=== PATIENT | female | born 1985 | race Caucasian/White ===

== ENCOUNTER 2020-03-22 01:42 | Emergency (ER) | payer OTHER, SELFPAY ==
--- NOTE | ~2020-03-22 | XR_ITS ---
XR elbow LT 2V DATE: 03/22/2020 02:51 INDICATION: Left elbow pain TECHNIQUE: AP and lateral views COMPARISON: None FINDINGS: No fracture or dislocation or joint effusion. No periosteal reaction or bone destruction. IMPRESSION: Negative Reviewed, dictated and finalized at location A. IMPRESSION: Negative
[2020-03-22 01:46] VITALS: BP 140/99; PULSE 78; RESP 19; TEMP 36.6; O2SAT 98
--- NOTE | 2020-03-22 02:05 | ED_ITS ---
HPI - Extremity Injury (Upper) General Chief Complaint: Extremity Injury, Upper Stated Complaint: Burning pain in elbow Time Seen by Provider: 03/22/20 01:46 History of Present Illness HPI narrative: Left elbow pain sice yesterday. She believes that she injured it pulling a box off of a shelf. Pain is located on the medial side of the elbow. worse with movement. Associated with tingling in the fingertips. Related Data Allergies Allergy/AdvReac Type Severity Reaction Status Date / Time codeine Allergy Gastrointestinal Verified 03/22/20 02:24 Upset lamotrigine Allergy Hives Verified 03/22/20 02:24 latex Allergy Hives Verified 03/22/20 02:24 Review of Systems Review of Systems: All systems reviewed & are unremarkable except as noted in HPI and below Exam Const: General: healthy appearing, no acute distress and alert O rientation/consciousness: patient oriented x3 HENMT: Head: normal to inspection Resp: Effort & Inspection: normal respiratory effort Skin: General skin exam: normal color Rashes: no rashes Wounds: no wounds Neuro: General: patient oriented x3 and moves all extremities Speech: normal speech Extrem: General: normal to inspection Other: Pain with left elbow extension. No tenderness. Full ROM. Course Vital Signs Vital signs: Vital Signs Temperature 36.6 C 03/22/20 01:46 Pulse Rate 78 03/22/20 01:46 Respiratory Rate 19 03/22/20 01:46 Blood Pressure 140/99 H 03/22/20 01:46 Pulse Oximetry 98 03/22/20 01:46 Temperature 36.6 C 03/22/20 01:46 Pulse Rate 72 03/22/20 03:24 Respiratory Rate 17 03/22/20 03:24 Blood Pressure 111/84 03/22/20 03:24 Pulse Oximetry 100 03/22/20 03:24 Discharge Plan Discharge Clinical Impression: Elbow pain Qualifiers: Laterality: left Qualified Code(s): M25.522 - Pain in left elbow Patient Disposition: Home, Self-Care Condition: Stable Instructions: Arm Pain (ED) Prescriptions: New ibuprofen 600 mg tablet 600 mg PO QID PRN (Reason: pain) Qty: 30 RF: 0 Follow-up/Referrals: PHYSICIAN,[facility] [Primary Care Provider] - Discharge Date/Time: 03/22/20 03:25
[2020-03-22] MEDS: KETOROLAC (*BKC) 60 MG/2 ML VIAL IM (02:21)
[2020-03-22 03:24] VITALS: BP 111/84; PULSE 72; RESP 17; O2SAT 100
== END 2020-03-22 03:25 | disposition home or self-care (01) ==
PROVIDERS: Emergency Provider Emergency Medicine
DX: M25.522 Pain in left elbow (principal)
CPT/HCPCS: 73070; 96372; 99283; J1885